=== PATIENT | female | born 1975 | race African-American/Black ===

== ENCOUNTER 2024-09-29 20:18 | Emergency (ER) | payer OTHER ==
[~2024-09-29] VITALS: Ht 154.9 cm; Wt 143.0 kg
[~2024-09-29 20:18] MED LIST: AMOX/K CLAV875 M1 PO; AMOXICILLIN500 MG OR; CEPH500C57 OR; CEPHALEXIN500 M1 OR; NAPROSYN500 MG PO; NAPROXEN500 MG PO; NO; ROBITUSSIN AC OR; TESSALON PER100 MG PO; THERAFL1 OR; ZITHROMAX250 MG PO
[2024-09-29 20:24] VITALS: BP 147/80
[2024-09-29] MEDS ORDERED: LIDOCAINE VISCOUS 2% 15 ML UDC PO ONE (20:30)
[2024-09-29] MEDS ORDERED: AMOXICILLIN & POT CLAVULANATE 875 MG/TAB PO ONE (20:30)
[2024-09-29 20:31] VITALS: BP 133/84
[2024-09-29] MEDS ORDERED: OXYCODONE30 MG PO (20:37)
[2024-09-29] MEDS ORDERED: MS CONTIN30 MG PO (20:38)
[2024-09-29] MEDS ORDERED: DOXAZOSIN MESYLA2 MG PO (20:43)
[2024-09-29] MEDS ORDERED: AMOX/K CLAV875 M1 PO (21:30)
[2024-09-29] MEDS ORDERED: LIDOCAINE21 MT (21:30)
[2024-09-29 21:36] VITALS: BP 146/74
[2024-09-29 21:46] VITALS: BP 146/74
== END 2024-09-29 21:56 | disposition home or self-care (01) ==
LOC: ED 20:18
DX: K04.7 Periapical abscess without sinus (principal); K02.9 Dental caries, unspecified; J98.8 Other specified respiratory disorders; B97.29 Other coronavirus as the cause of diseases classified elsewhere; I10 Essential (primary) hypertension; F17.200 Nicotine dependence, unspecified, uncomplicated; Z20.822 Contact with and (suspected) exposure to COVID-19